=== PATIENT | male | born 1950 | race Caucasian/White ===

== ENCOUNTER → 2020-02-13 | Outpatient (CLI) | payer OTHER ==
--- NOTE | 2020-02-13 10:11 | MRI ---
Study: MRI of the Right Knee. Indication: PAIN IN UNSPECIFIED KNEE Technique: Multiplanar, multi sequence MRI of the right knee was obtained without intravenous contrast. Comparison: None. Findings: ACL, PCL, MCL, and lateral collateral ligament complex intact. Amorphous degenerative signal posterior horn and body medial meniscus with subtle superior surface fraying posterior horn as well as undersurface fraying of the peripheral red zone of the body. Lateral meniscus intact. Subtle areas of grade 1 and 2 chondrosis throughout the medial compartment in addition to more pronounced grade 3 chondral thinning and surface irregularity throughout the lateral margin of the medial femoral condyle. No high-grade chondral defect lateral compartment. Low-grade tendinosis quadriceps tendon insertion. Patellar tendon intact. Patella normally located. Mild prepatellar bursitis. Subtle areas of grade 1-2 chondrosis throughout the patellofemoral compartment with a more pronounced subtle 6 mm transverse by 7 mm craniocaudal grade 4 chondral lesion and subchondral marrow change at the inferior margin of the medial femoral trochlea. Small knee effusion. No acute fracture. Impression: Degenerative changes medial meniscus with superior surface fraying posterior horn and undersurface fraying body. No fluid-filled tear. Grade 1-2 chondrosis throughout the medial compartment with subtle grade 3 chondrosis of the lateral margin of the medial femoral condyle. Low-grade tendinosis quadriceps tendon insertion. Grade 1-2 chondrosis throughout the majority of the patellofemoral compartment with a dominant grade 4 chondral lesion at the inferior margin of the medial femoral trochlea. Small knee effusion. Electronically signed by: Maurisio Mock MD 02/13/2020 10:09 AM CDT
== END ==
LOC: MRI 08:48
PROVIDERS: ATTEND Family Medicine
DX: M17.11 Unilateral primary osteoarthritis, right knee (principal); M22.41 Chondromalacia patellae, right knee; M94.8X6 Other specified disorders of cartilage, lower leg; M76.891 Other specified enthesopathies of right lower limb, excluding foot; M25.461 Effusion, right knee

== ENCOUNTER → 2020-09-04 | Outpatient (CLI) | payer OTHER | LOC: GMA MATASK 14:35 | PROVIDERS: ATTEND Family Medicine | DX: I10 Essential (primary) hypertension (principal); Z12.5 Encounter for screening for malignant neoplasm of prostate; E11.9 Type 2 diabetes mellitus without complications | CPT/HCPCS: 84443; 84550; G0103 ==